=== PATIENT | male | born 1940 | race Caucasian/White ===

== ENCOUNTER 2021-04-21 20:25 | Emergency (ER) | payer MEDICARE, SELFPAY ==
[2021-04-21 20:38] VITALS: BP 116/78; PULSE 100; RESP 18; TEMP 36.4; O2SAT 96; BMI 21.9
[2021-04-21 21:00] VITALS: BP 131/80; PULSE 79; RESP 22; O2SAT 98
--- NOTE | 2021-04-21 21:04 | PC.NURSE ---
O2 reduced to 3L; SATS maintained at 98%. Pt reports feeling better unless I move around a lot. at bedside.
--- NOTE | 2021-04-21 21:23 | CTR_ITS ---
PROCEDURE INFORMATION: Exam: CTA Chest With Contrast Exam date and time: 04/21/2021 9:23 PM Age: 81 years old Clinical indication: Shortness of breath; Prior surgery; Surgery type: Open heart, pacemaker; Patient HX: Skin and prostate cancer; Additional info: SOB, high pretest prob TECHNIQUE: Imaging protocol: Computed tomographic angiography of the chest with contrast. 3D rendering (Not supervised by radiologist): MIP and/or 3D reconstructed images were created by the technologist. Radiation optimization: All CT scans at this facility use at least one of these dose optimization techniques: automated exposure control; mA and/or kV adjustment per patient size (includes targeted exams where dose is matched to clinical indication); or iterative reconstruction. Contrast material: OMNI 350; Contrast volume: 68 ml; Contrast route: INTRAVENOUS (IV); COMPARISON: CT chest w con* [id number] 03/12/2015 12:05 PM RADIATION DOSE METRICS: Total DLP (mGy-cm): 576.26 FINDINGS: Tubes, catheters and devices: Pacemaker. Pulmonary arteries: Normal. No pulmonary emboli. Aorta: Unremarkable. No aortic aneurysm. No aortic dissection. Lungs: Bilateral largely peripheral chronic interstitial fibrotic changes with associated emphysematous changes. Pleural spaces: Unremarkable. No pneumothorax. No pleural effusion. Heart: Cardiomegaly. Lymph nodes: Unremarkable. No enlarged lymph nodes. Kidneys and ureters: Right kidney nonobstructive calyceal stone. Stomach and bowel: Constipation suspected. Bones/joints: Sternotomy wires. Soft tissues: Small amount of nonlocalized fluid seen in the fat at the diaphragmatic hiatus, nonspecific. CT/CT angio chest PE protcl [id number] IMPRESSION: 1. Negative for pulmonary embolus 2. Cardiomegaly. 3. Constipation suspected. 4. Right kidney nonobstructive calyceal stone. 5. Bilateral largely peripheral chronic interstitial fibrotic changes with associated emphysematous changes. Radiation Dose CTDIVOL = (mGy): DLP = 576.26 (mGy-cm)
--- NOTE | 2021-04-21 21:25 | ECG_ITS ---
[facility] Test Date: 2021-04-21 Pat Name: Charlene Bo Department: Room: Gender: Male Vehicle And Equipment Cleaner: : 1940 Requested By: Shaka Oliva I Order Number: [id number] Jacquelyn MD: John Mulligan M.D. Measurements Intervals [place] Rate: 84 P: 18 IN: 232 QRS: 29 QRSD: 92 T: 243 QT: 383 QTc: 453 Interpretive Statements SINUS RHYTHM WITH FIRST DEGREE AV BLOCK POSSIBLE LEFT ATRIAL ENLARGEMENT [-0.1mV P WAVE IN V1/V2] ST DEVIATION AND MODERATE T-WAVE ABNORMALITY, CONSIDER ANTEROLATERAL ISCHEMIA [-0.1+ mV T WAVE IN V3-V6] ST DEVIATION AND MODERATE T-WAVE ABNORMALITY, CONSIDER INFERIOR ISCHEMIA [-0.1+ mV T WAVE IN II/aVF] Compared to ECG 05/10/2019 09:12:33 T-wave abnormality now present Possible ischemia now present Electronically Signed On 04-22-2021 0:31:42 CDT by John Mulligan M.D. [id number]
[2021-04-21 21:44] VITALS: PULSE 98; RESP 18; O2SAT 99
[2021-04-21] MEDS: ipratropium-albuterol 3 mL Neb INHALATION (21:44)
[2021-04-21 21:49] VITALS: PULSE 99
[2021-04-21 21:50] LABS: Troponin(5th) Baseline 26 ng/L (0-15)
[2021-04-21 21:53] LABS: ABG PH Result 7.52 (7.35-7.45); Base Excess ABG 2.3 mmol/L (-2.0-2.0); Blood Gas Allen Test Pos; Blood Gas Sample Site Radial, right; Blood Gas Sample Type Arterial; Carboxyhemoglobin 0.1 %THgb (0.4-20.1); HCO3 ABG 24.6 mmol/L (22-26); HGB O2 Sat 94.7 % (95-100); Methemoglobin 0.9 % (0.4-1.5); Oxygen Device NC; PO2 ABG 77.8 mmHg (80.0-100.0); Total Hemoglobin 11.1 g/dL (14-18)
[2021-04-21 21:58] LABS: Alanine Aminotransferase 10 U/L (0-41); Albumin Level 3.9 g/dL (3.5-5.2); Alkaline Phosphatase 105 IU/L (40-130); Anion Gap 18.7 (5-19); Aspartate Amino Transferase 13 U/L (0-40); Blood Urea Nitrogen 18 mg/dL (8-23); Calcium 9.3 mg/dL (8.5-10.5); Carbon Dioxide 25 mmol/L (22-29); Chloride 102 mmol/L (98-107); Glucose 76 mg/dL (65-115); NT Pro B Type Natriuretic Pept 605 pg/mL (0-450); Osmolality Calculated 293 mOsm/kg (285-295); Potassium 4.7 mmol/L (3.5-5.1); Sodium 141 mmol/L (136-145); Total Bilirubin 0.4 mg/dL (0.15-1.2); Total Protein 6.9 g/dL (6.6-8.7)
[2021-04-21] MEDS: iohexol 350 mg/mL 100 mL Btl IV (22:10)
[2021-04-21 22:25] LABS: Basophils % 0.4 %; Eosinophils # 0.1 10^3/uL (0.0-0.8); Eosinophils % 1.2 %; Hematocrit 37.2 % (42.0-52.0); Hemoglobin 11.3 g/dL (11.7-16.6); Lymphocytes # 2.1 10^3/uL (0.8-4.8); Lymphocytes % 19.4 %; Mean Corpuscular HGB Conc 30.4 g/dL (30.0-36.0); Mean Corpuscular Hemoglobin 26.5 pg (28.0-34.0); Mean Corpuscular Volume 87.3 fL (80-94); Mean Platelet Volume 10.4 fL (7.4-10.4); Monocytes # 0.8 10^3/uL (0.2-0.9); Monocytes % 7.7 %; Neutrophils # 7.61 10^3/uL (1.8-7.7); Neutrophils % 71.1 %; Nucleated Red Blood Cells % 0 %; Platelet Count 242 10^3/cmm (130-400); Red Blood Count 4.26 10^6/uL (4.1-5.3); Red Cell Distribution Width 14.6 % (12.1-15.1); White Blood Count 10.7 10^3/uL (4.0-10.0)
[2021-04-21 22:49] VITALS: PULSE 96; RESP 22; O2SAT 100
--- NOTE | 2021-04-21 23:25 | ECG_ITS ---
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 Measurements Intervals [place] Rate: 88 P: 20 VA: 244 QRS: 33 QRSD: 94 T: 251 QT: 357 QTc: 433 Interpretive Statements SINUS RHYTHM WITH FIRST DEGREE AV BLOCK POSSIBLE LEFT ATRIAL ENLARGEMENT [-0.1mV P WAVE IN V1/V2] ST DEVIATION AND MODERATE T-WAVE ABNORMALITY, CONSIDER ANTEROLATERAL ISCHEMIA [-0.1+ mV T WAVE IN V3-V6] ST DEVIATION AND MODERATE T-WAVE ABNORMALITY, CONSIDER INFERIOR ISCHEMIA [-0.1+ mV T WAVE IN II/aVF] Compared to ECG 04/21/2021 21:57:52 No significant changes Electronically Signed On 04-22-2021 0:54:23 CDT by John Mulligan M.D. [id number]
[2021-04-21 23:31] LABS: Troponin 5 2HR 20.66 ng/L (0-15)
[2021-04-21 23:32] LABS: Troponin 5 2HR Delta -5.34 ABS# (0-10)
--- NOTE | 2021-04-21 23:46 | W.ED.SOB ---
HPI - SOB/Dyspnea General: Chief Complaint: Shortness of Breath/Dyspnea Stated Complaint: difficulty breathing Time Seen by Provider: 04/21/21 21:15 Source: patient and family () Mode of arrival: ambulatory Limitations: no limitations History of Present Illness: HPI Narrative: This 81-year-old gentleman with a history of pulmonary fibrosis and is on 4 L of oxygen per minute chronically presents to the emergency department with worsening shortness of breath. Patient states that for several months he has been having progressively worsening shortness of breath despite being on oxygen. He thinks that he may need more oxygen than he is getting. He denies any fever, chest pain, sick contacts. He would like to be evaluated for these. [place] and he normally lives in [facility] elicited complaint: shortness of breath Pertinent past history: other (pulmonary fibrosis) Onset (ago): month(s) (4) Timing: constant and progressively worsening Severity: severe Exacerbating factors: exertion Relieving factors: oxygen Known history of: other (pulmonary fibrosis) Associated symptoms: Deny abdominal pain, chest congestion, chest pain, cough, diaphoresis, dizziness, extremity pain, fever(s), hemoptysis, lightheadedness, myalgias, nausea, orthopnea, palpitations, paresthesias, polydipsia, polyuria, rash, sense of impending doom, syncope or vomiting Treatment prior to arrival: oxygen Review of Systems General: Reports: 10 or more systems reviewed and unremarkable except in HPI and below Const: Denies: fever(s) or diaphoresis Card: Denies: chest pain, palpitations, lightheadedness, syncope or orthopnea Resp: Denies: hemoptysis or chest congestion GI: Denies: abdominal pain, nausea or vomiting Musc: Denies: extremity pain Neuro: Denies: dizziness Endo: Denies: polyuria or polydipsia Physical Exam Const: COMMON NORMALS: no acute distress, average body habitus, patient oriented x3, no limitations, healthy appearing, alert and well nourished HENMT: COMMON NORMALS: normocephalic, atraumatic and moist oral mucous membranes HEAD & SCALP: normocephalic and atraumatic Neck/C-Spine: COMMON NORMALS: no meningeal signs and no JVD Resp: COMMON NORMALS: normal respiratory effort, No retractions, No use of accessory muscles, clear to auscultation bilaterally and percussion normal AUSCULTATION: clear to auscultation bilaterally PERCUSSION: percussion normal Cardio: COMMON NORMALS: no JVD, regular rate, regular rhythm, S1 normal heart sound present, S2 normal heart sound present, No gallops present (Cardio), No clicks present (Cardio), No murmurs present (Cardio), No rub (Cardio) and Peripheral pulses 2+ throughout RATE: regular rate RHYTHM: regular rhythm HEART SOUNDS: S1 normal heart sound present and S2 normal heart sound present PERIPHERAL PULSES: Peripheral pulses 2+ throughout GI: COMMON NORMALS: Normal to inspection, nondistended, normoactive bowel sounds present, Soft to palpation, non-tender, No hepatosplenomegaly present, no masses and no bruits PALPATION: Yes Soft to palpation and Yes No hepatosplenomegaly present Extremity: COMMON NORMALS: normal to inspection, full ROM, capillary refill normal, no calf tenderness and no pedal edema Neuro: COMMON NORMALS: patient oriented x3 SENSORIUM/ORIENTATION: Yes alert MENINGEAL SIGNS: Yes no meningeal signs Course Reevaluation(s): Reevaluation #1: Discussed his lab and imaging findings with him. Unremarkable. Explained to him the natural course of pulmonary fibrosis and that it is progressive and unfortunately is unlikely to get any better. He stated that he obtained significant improvement following the DuoNeb treatment and so I sent him home with a prescription for albuterol nebulizer and Nebules to use as needed. He voiced understanding and is in agreement with the plan. He will follow-up with his child care nurse and primary care provider. Time: 23:46 Vital Signs: Vital signs: Vital Signs Temperature 97.6 F 04/21/21 20:38 Pulse Rate 82 04/22/21 00:14 Respiratory Rate 18 04/22/21 00:14 Blood Pressure 127/69 04/22/21 00:14 Pulse Oximetry 100 04/22/21 00:14 MDM - SOB/Dyspnea MDM Narrative: Medical decision making narrative: This unfortunate 81-year-old male with a history of pulmonary fibrosis presents to the emergency department with progressively worsening shortness of breath. Evaluation in the emergency department is unremarkable and he is discharged home with a prescription for albuterol nebulizer Nebules as he obtained significant improvement when he was given a DuoNeb treatment. He is discharged home to follow-up with his child care nurse and primary care provider. Medical Records: Attestation: I reviewed the patient's medical records. Lab Data: Attestation: I reviewed the patient's lab results. Labs: Lab Results 04/21/21 04/21/21 04/21/21 Range/Units 21:02 21:02 21:02 WBC 10.7 H (4.0-10.0) 10^3/ uL RBC 4.26 (4.1-5.3) 10^6/u L Hgb 11.3 L (11.7-16.6) g/dL Hct 37.2 L (42.0-52.0) % MCV 87.3 (80-94) fL MCH 26.5 L (28.0-34.0) pg MCHC 30.4 (30.0-36.0) g/dL RDW 14.6 (12.1-15.1) % Plt Count 242 (130-400) 10^3/c mm MPV 10.4 (7.4-10.4) fL Neut % (Auto) 71.1 % Lymph % (Auto) 19.4 % [place] % (Auto) 7.7 % Eos % (Auto) 1.2 % Baso % (Auto) 0.4 % Neut # (Auto) 7.61 (1.8-7.7) 10^3/u L Lymph # (Auto) 2.1 (0.8-4.8) 10^3/u L [place] # (Auto) 0.8 (0.2-0.9) 10^3/u L Eos # (Auto) 0.1 (0.0-0.8) 10^3/u L Baso # (Auto) 0.0 (0.0-0.1) 10^3/u L Nucleated RBC % (a uto) 0 % Nucleated RBCs # 0.0 /100WBC Specimen Type Sample Site ABG pH (7.35-7.45) ABG pCO2 (35-45) mmHg ABG pO2 (80.0-100.0) mmH g ABG HCO3 (22-26) mmol/L ABG Base Excess (-2.0-2.0) mmol/ L Don Test Hematocrit (42-52) % Hgb O2 Saturation (95-100) % Carboxyhemoglobin (0.4-20.1) %THgb Methemoglobin (0.4-1.5) % Total Hemoglobin (14-18) g/dL O2 Delivery Device O2 Liters/Min % Semiconductor Engineer ID Sodium 141 (136-145) mmol/L Potassium 4.7 (3.5-5.1) mmol/L Chloride 102 (98-107) mmol/L Carbon Dioxide 25 (22-29) mmol/L Anion Gap 18.7 (5-19) BUN 18 (8-23) mg/dL Creatinine 1.1 (0.7-1.2) mg/dL GFR Calculation Not Reportable Glucose 76 (65-115) mg/dL Calculated Osmolal ity 293 (285-295) mOsm/k g Calcium 9.3 (8.5-10.5) mg/dL Total Bilirubin 0.4 (0.15-1.2) mg/dL AST 13 (0-40) U/L ALT 10 (0-41) U/L Alkaline Phosphata se 105 (40-130) IU/L Troponin T Baselin e 26 H (0-15) ng/L Troponin T 120 Min [place] (0-15) ng/L Delta Troponin T (0-10) ABS# NT-Pro-B Natriuret Pep 605 H (0-450) pg/mL Total Protein 6.9 (6.6-8.7) g/dL Albumin 3.9 (3.5-5.2) g/dL Globulin 3.0 (1.3-4.6) g/dL 04/21/21 04/21/21 Range/Units 21:45 22:52 WBC (4.0-10.0) 10^3/ uL RBC (4.1-5.3) 10^6/u L Hgb (11.7-16.6) g/dL Hct (42.0-52.0) % MCV (80-94) fL MCH (28.0-34.0) pg MCHC (30.0-36.0) g/dL RDW (12.1-15.1) % Plt Count (130-400) 10^3/c mm MPV (7.4-10.4) fL Neut % (Auto) % Lymph % (Auto) % [place] % (Auto) % Eos % (Auto) % Baso % (Auto) % Neut # (Auto) (1.8-7.7) 10^3/u L Lymph # (Auto) (0.8-4.8) 10^3/u L [place] # (Auto) (0.2-0.9) 10^3/u L Eos # (Auto) (0.0-0.8) 10^3/u L Baso # (Auto) (0.0-0.1) 10^3/u L Nucleated RBC % (a uto) % Nucleated RBCs # /100WBC Specimen Type Arterial Sample Site Radial, right ABG pH 7.52 H (7.35-7.45) ABG pCO2 30.0 L (35-45) mmHg ABG pO2 77.8 L (80.0-100.0) mmH g ABG HCO3 24.6 (22-26) mmol/L ABG Base Excess 2.3 H (-2.0-2.0) mmol/ L Don Test Pos Hematocrit 34.0 L (42-52) % Hgb O2 Saturation 94.7 L (95-100) % Carboxyhemoglobin 0.1 L (0.4-20.1) %THgb Methemoglobin 0.9 (0.4-1.5) % Total Hemoglobin 11.1 L (14-18) g/dL O2 Delivery Device Nc O2 Liters/Min 3.0 % Semiconductor Engineer ID [email or web address] Sodium (136-145) mmol/L Potassium (3.5-5.1) mmol/L Chloride (98-107) mmol/L Carbon Dioxide (22-29) mmol/L Anion Gap (5-19) BUN (8-23) mg/dL Creatinine (0.7-1.2) mg/dL GFR Calculation Glucose (65-115) mg/dL Calculated Osmolal ity (285-295) mOsm/k g Calcium (8.5-10.5) mg/dL Total Bilirubin (0.15-1.2) mg/dL AST (0-40) U/L ALT (0-41) U/L Alkaline Phosphata se (40-130) IU/L Troponin T Baselin e (0-15) ng/L Troponin T 120 Min [place] 20.66 H (0-15) ng/L Delta Troponin T -5.34 L (0-10) ABS# NT-Pro-B Natriuret Pep (0-450) pg/mL Total Protein (6.6-8.7) g/dL Albumin (3.5-5.2) g/dL Globulin (1.3-4.6) g/dL Imaging Data^: CTA Chest: Attestation: I personally reviewed and interpreted this imaging study as follows: Radiologist's impression: [employer] [id number] Scan ReportSigned Patient: Vesna Bo #: [id number]: 1940Acct#:[id number]/Sex: 81 / MADM Date: 04/21/21Loc: ERRoom/Bed:Attending Dr: Ordering Provider/Ordering MD: Shaka Oliva MD, [facility] [place] Date of Service: 04/21/21 Procedure(s): CT angio chest PE [facility] [id number] Accession Number(s): [id number] Report Number: [id number] PROCEDURE INFORMATION: Exam: CTA Chest With Contrast Exam date and time: 04/21/2021 9:23 PM Age: 81 years old Clinical indication: Shortness of breath; Prior surgery; Surgery type: Open heart, pacemaker; Patient HX: Skin and prostate cancer; Additional info: SOB, high pretest prob TECHNIQUE: Imaging protocol: Computed tomographic angiography of the chest with contrast. 3D rendering (Not supervised by radiologist): MIP and/or 3D reconstructed images were created by the technologist. Radiation optimization: All CT scans at this facility use at least one of these dose optimization techniques: automated exposure control; mA and/or kV adjustment per patient size (includes targeted exams where dose is matched to clinical indication); or iterative reconstruction. Contrast material: OMNI 350; Contrast volume: 68 ml; Contrast route: INTRAVENOUS (IV); COMPARISON: CT chest w con* [id number] 03/12/2015 12:05 PM RADIATION DOSE METRICS: Total DLP (mGy-cm): 576.26 FINDINGS: Tubes, catheters and devices: Pacemaker. Pulmonary arteries: Normal. No pulmonary emboli. Aorta: Unremarkable. No aortic aneurysm. No aortic dissection. Lungs: Bilateral largely peripheral chronic interstitial fibrotic changes with associated emphysematous changes. Pleural spaces: Unremarkable. No pneumothorax. No pleural effusion. Heart: Cardiomegaly. Lymph nodes: Unremarkable. No enlarged lymph nodes. Kidneys and ureters: Right kidney nonobstructive calyceal stone. Stomach and bowel: Constipation suspected. Bones/joints: Sternotomy wires. Soft tissues: Small amount of nonlocalized fluid seen in the fat at the diaphragmatic hiatus, nonspecific. CT/CT angio chest PE protcl [id number] IMPRESSION: 1. Negative for pulmonary embolus 2. Cardiomegaly. 3. Constipation suspected. 4. Right kidney nonobstructive calyceal stone. 5. Bilateral largely peripheral chronic interstitial fibrotic changes with associated emphysematous changes. Radiation Dose CTDIVOL = (mGy): DLP = 576.26 (mGy-cm) Dictated By:Bharath Eldridge MDSigned By:Bharath Eldridge MDSigned Date/Time:04/21/212245DD/ 44 EKG Data^: EKG 1: Attestation: I personally reviewed and interpreted this EKG as follows: EKG Interpretation Date: 04/21/21 EKG interpretation time: 21:59 Prior EKG tracings: not available for review Interpretation: Sinus rhythm with first-degree AV block. Screenings heart rate 84 bpm. Left atrial enlargement. T wave in version in leads I and II No ST changes. EKG 2: Attestation: I personally reviewed and interpreted this EKG as follows: EKG Interpretation Date: 04/21/21 EKG interpretation time: 23:21 Prior EKG tracings: available for review Interpretation: Sinus rhythm with first-degree AV block. Heart rate 88 bpm. Left atrial enlargement. T wave inversion in leads I and II. No ST changes. No significant change from earlier Discharge Plan Discharge Patient Disposition: Home Clinical Impression: Pulmonary fibrosis, Shortness of breath Condition: Stable Prescriptions: New (DME) nebulizers Misc See Rx Instructions .ROUTE Qty: 1 RF: 0 albuterol sulfate 2.5 mg /3 mL (0.083 %) solution for nebulization 2.5 mg inhalation TID 10 Days Qty: 90 RF: 0 Discharge Orders: Discharge ED (Routine); Ordered 04/21/21 Ordered By: Shaka Oliva Discharge Diet: Usual diet Discharge Activity: Increase activity as tolerated Patient Instructions: Pulmonary Fibrosis (ED), Dyspnea (ED) Activity Restrictions/Additional Instructions: Return for any new or worsening symptoms. Follow-up with your primary care provider and child care nurse within 1 week. Continue your home oxygen. Use the albuterol every 4 hours as needed. Coding Level of Care Code ED Electromechanical Inspector for Cole Marques
[2021-04-22 00:14] VITALS: BP 127/69; PULSE 82; RESP 18; O2SAT 100
== END 2021-04-22 00:16 | disposition home or self-care (01) ==
PROVIDERS: Emergency Provider Family Medicine
DX: J84.10 Pulmonary fibrosis, unspecified (principal)
CPT/HCPCS: 36415; 36600; 71275; 80053; 82805; 83880; 84484; 85025; 93005; 94640; 99284; Q9967